=== PATIENT | female | born 1990 | race American Indian/Alaskan Native ===

== ENCOUNTER 2017-09-17 17:35 | Emergency (ER) | payer MEDICAID ==
[2017-09-17 17:36] VITALS: BMI 38.2
[2017-09-17 18:07] VITALS: BP 108/62; PULSE 78; RESP 16; TEMP 98.2; O2SAT 100
== END 2017-09-17 21:26 | disposition left against medical advice (07) ==
LOC: H.ER 17:35
DX: Z02.89 Encounter for other administrative examinations (principal)

== ENCOUNTER 2017-09-19 16:25 | Emergency (ER) | payer MEDICAID ==
[2017-09-19 16:25] VITALS: BMI 38.2
[2017-09-19 17:24] VITALS: BP 106/52; PULSE 66; RESP 18; TEMP 98.4; O2SAT 100
--- NOTE | 2017-09-19 19:56 | ED PDOC ---
HPI: Female Pain Time Seen by Provider: 09/19/17 19:12 Chief Complaint (Nursing): Female Genitourinary Chief Complaint (Provider): Pelvic pressure in History Per: Patient History/Exam Limitations: no limitations Onset/Duration Of Symptoms: Days Additional Complaint(s): 27 yo (1 ) presents at 17 weeks gestation for evaluation of pelvic pressure x 3 days. Pt states she came to the ER yesterday but the wait was too long and she left. Pt denies vaginal bleeding or discharge. Pt states she has been getting OB care and when she called her OB she was told to come to the ER for evaluation. Past Medical History Reviewed: Historical Data, Nursing Documentation, Vital Signs Vital Signs: Last Vital Signs Temp 98.4 F 09/19/17 17:19 Pulse 66 09/19/17 17:19 Resp 18 09/19/17 17:19 BP 106/52 L 09/19/17 17:19 Pulse Ox 100 09/19/17 17:19 - Medical History PMH: Asthma ( A CHILD), Fractures (LEFT ARM CHILD), HTN Denies: Depression, Chronic Kidney Disease - Surgical History Surgical History: No Surg Hx - Family History Family History: States: No Known Family Hx - Living Arrangements Living Arrangements: With Family - Social History Current smoker - smoking cessation education provided: No Alcohol: None Drugs: Denies - Home Medications Home Medications: Ambulatory Orders Medication Instructions Recorded Multivit/Folic Acid/I 1 tab PO DAILY 08/09/17 [ Plus] - Allergies Allergies/Adverse Reactions: Allergies Allergy/AdvReac Type Severity Reaction Status Date / Time pollen extracts Allergy ITCHING Verified 09/19/17 17:19 sulfamethoxazole AdvReac RASH Verified 09/19/17 17:19 [From Bactrim] trimethoprim [From Bactrim] AdvReac RASH Verified 09/19/17 17:19 seafood Allergy RASH Uncoded 09/19/17 17:19 Review of Systems ROS Statement: Except As Marked, All Systems Reviewed And Found Negative Constitutional: Negative for: Fever, Chills Genitourinary Female: Positive for: Pelvic Pain (Pressure ). Negative for: Dysuria, Frequency, Hematuria, Vaginal Discharge, Vaginal Bleeding Physical Exam - Reviewed Nursing Documentation Reviewed: Yes Vital Signs Reviewed: Yes - Physical Exam Appears: Positive for: Well, Non-toxic, No Acute Distress Head Exam: Positive for: ATRAUMATIC, NORMAL INSPECTION, NORMOCEPHALIC Skin: Positive for: Normal Color, Warm, DRY Eye Exam: Positive for: Normal appearance ENT: Positive for: Normal ENT Inspection Neck: Positive for: Normal, Painless ROM Cardiovascular/Chest: Positive for: Regular Rate, Rhythm Respiratory: Positive for: Normal Breath Sounds. Negative for: Accessory Muscle Use, Respiratory Distress Gastrointestinal/Abdominal: Positive for: Normal Exam, Soft. Negative for: Tenderness Back: Positive for: Normal Inspection Extremity: Positive for: Normal ROM Neurologic/Psych: Positive for: Alert, Oriented - ECG O2 Sat by Pulse Oximetry: 100 Medical Decision Making Medical Decision Making: Endorsed pending US and urine dip at 1999 to MAYDA Riojas Disposition - Clinical Impression Clinical Impression: Pelvic pressure in - Patient ED Disposition Is Patient to be Admitted: Transfer of Care - Disposition Disposition: Transfer of Care Disposition Time: 20:01 Condition: STABLE
--- NOTE | 2017-09-19 22:00 | ED PDOC ---
- ECG O2 Sat by Pulse Oximetry: 100 - Progress ED Course And Treament: Case endorsed to program writer from Diana OHARA pending u/s EXAM: US Uterus, Limited CLINICAL HISTORY: 27 years old, female; Pain; Other: Pressure; Gestational age or lmp: 05/18/17; ; Additional info: 17 weeks, pressure TECHNIQUE: Real-time ultrasound of the maternal uterus (limited) with image documentation. COMPARISON: No relevant prior studies available. FINDINGS: Fetus: Single live intrauterine gestation. No gross anomaly is appreciated. Gestational age: Estimated gestational age of 17 weeks 2 days by measurements. BRITTNEE: 02/25/2018 by ultrasound. EFW: 189 g. Position: Cephalic. Heart rate: heart rate of 148 beats per minute. Placenta: Anterior placenta. No placenta previa or abruption. Amniotic fluid: Normal. Cervix: No cervical dilatation or effacement. Adnexa: Ovaries not visualized. No adnexal masses. Free fluid: No significant free fluid. IMPRESSION: 1. Single live intrauterine gestation. Patient refusing to give urine sample for udip to check for uti; states she was here for 5 hours and no one told her to give urine Patient states she needs to leave at this time. Patient was advised to follow up with her [employer] tomorrow for further evaluation Return precautions given. Disposition - Clinical Impression Clinical Impression: Pelvic pressure in - POA Present On Arrival: None - Disposition Disposition: Routine/Home Disposition Time: 22:02 Condition: GOOD Additional Instructions: You declined providing a urine sample today. Please follow up with out [employer] [employer] tomorrow for further evaluation Return to ED for worsening/concerning symptoms Instructions: Round Ligament Pain Forms: [employer] (Slovenian)
--- NOTE | 2017-09-20 15:41 | US ---
PROCEDURE: HISTORY: LMP 05/18/2017. Pelvic pressure. Beta HCG levels pending. COMPARISON: None TECHNIQUE: Transabdominal scanning of the maternal pelvis and a 2nd/ 3rd trimester with image documentation FINDINGS: Fetus: Single intrauterine gestation heart rate: Present at 148beats per minute presentation: Cephalic Placenta: Anteriorwithout previa or abruption. Inferior edge more than 2 cm from the internal cervical os Amniotic fluid : Normal appearin cm ; anatomy: Grossly unremarkable biometrics: Gestational age by ultrasound: 17 weeks 2 days 1 week 1 day. Etimated date of delivery 02/25/2018 per ultrasound. Per LMP 02/22/2018. Gestational age by LMP is 17 weeks 5 days. Estimated weight: 189.39 g 20 8.41 g Maternal factors: Uterus: Unremarkable. No myometrial masses Cervix: 5.5 cm length closed Free fluid: None Ovaries not seen. IMPRESSION: . Single intrauterine gestation -whose ultrasound biometric parameters are concordant with 17 weeks 2 days 1 week 1 day. This is concordant with the gestational age by LMP cardiac activity present and unremarkable. presentation cephalic -. No previa.. . Concordant results (preliminary interpretation) provided by [facility].
== END 2017-09-19 21:55 | disposition home or self-care (01) ==
LOC: H.ER 16:25
DX: O26.899 Other specified pregnancy related conditions, unspecified trimester (principal); O99.512 Diseases of the respiratory system complicating pregnancy, second trimester; J45.909 Unspecified asthma, uncomplicated; Z3A.17 17 weeks gestation of pregnancy